=== PATIENT | male | born 1940 | race Hispanic/Latino ===

== ENCOUNTER 2018-05-07 11:01 | Emergency (ER) | payer MEDICARE ==
[2018-05-07] MEDS ORDERED: ONDANSETRON HCL 4 MG/2 ML VIAL ONE (12:03)
[2018-05-07] MEDS ORDERED: MORPHINE SULFATE 4 MG/1ML SYG ONE (12:03)
[2018-05-07] MEDS ORDERED: PROPOFOL 1000 MG/100 ML 0 ML IV ONE (15:04)
[2018-05-07] MEDS ORDERED: PROPOFOL 10 MG/ML 20ML VIAL IV ONE (15:16)
== END 2018-05-07 17:00 | disposition home or self-care (01) ==
LOC: EDH 11:01
DX: S43.084A Other dislocation of right shoulder joint, initial encounter (principal); E78.5 Hyperlipidemia, unspecified; I10 Essential (primary) hypertension; X58.XXXA Exposure to other specified factors, initial encounter; Y93.89 Activity, other specified; Y92.89 Other specified places as the place of occurrence of the external cause; Y99.8 Other external cause status
CPT/HCPCS: 23650; 73020 ×2; 96374; 96375; 99152; 99153; 99285; J2270; J2405; J2704